=== PATIENT | female | born 1960 | race Caucasian/White ===

== ENCOUNTER 2019-01-12 10:36 | Inpatient (IN) | payer MEDICAID ==
[~2019-01-12] VITALS: Ht 170.2 cm; Wt 72.7 kg
[~2019-01-12 10:36] MED LIST: FOLI1TAB16 PO; IBUP-24 PO; THI100T PO
[2019-01-12] MEDS ORDERED: LIDOcaine 1% w/epiNEPHrine 1:200,000 30ml vial IM ONE ×2 (10:50→14:35)
[2019-01-12] MEDS ORDERED: sulfamethoxazole/trimethoprim DS (800/160mg) tablet PO ONE (10:50)
[2019-01-12] MEDS ORDERED: HYDROcodone/acetaminophen 10/325mg tab PO ONE (10:50)
[2019-01-12 11:30] LABS: BASOPHILS # (AUTO) 0.1 X10'3 (0-0.2); BASOPHILS % (AUTO) 0.3 % (0-1); EOSINOPHILS # (AUTO) 0.2 X10'3 (0-0.9); HEMATOCRIT 40.3 % (35.0-45.0); HEMOGLOBIN 13.4 g/dl (12.0-16.0); LYMPHOCYTES # (AUTO) 2.2 X10'3 (1.1-4.8); LYMPHOCYTES % (AUTO) 11.3 % (21-51); MEAN CORPUSCULAR HEMOGLOBIN 28.1 PG (27.0-31.0); MEAN CORPUSCULAR HGB CONC 33.2 g/dL (33.0-36.5); MEAN CORPUSCULAR VOLUME 84.7 FL (78-98); MEAN PLATELET VOLUME 7.9 FL (7.4-10.4); MONOCYTES # (AUTO) 1.4 X10'3 (0-0.9); MONOCYTES % (AUTO) 7.1 % (2-12); NEUTROPHILS # (AUTO) 15.9 X10'3 (1.8-7.7); NEUTROPHILS % (AUTO) 80.3 % (42-75); PLATELET COUNT 454 X10'3 (140-440); RED BLOOD COUNT 4.76 X10'6 (4.20-5.60); WHITE BLOOD COUNT 19.7 X10'3 (4.5-11.0)
[2019-01-12 11:40] LABS: ALANINE AMINOTRANSFERASE 21 U/L (12-78); ALBUMIN 2.9 G/DL (3.4-5.0); ALBUMIN/GLOBULIN RATIO 0.7 (1.1-1.5); ALKALINE PHOSPHATASE 94 IU/L (46-116); ANION GAP 12 (8-16); ASPARTATE AMINO TRANSFERASE 13 U/L (10-37); BILIRUBIN,TOTAL 0.3 MG/DL (0.1-1.0); BLOOD UREA NITROGEN 11 MG/DL (7-18); BUN/CREATININE RATIO 13.1 (6.6-38.0); CHLORIDE 103 MMOL/L (99-107); CREATININE 0.84 MG/DL (0.40-0.90); GLUCOSE 119 MG/DL (70-104); SODIUM 138 MMOL/L (135-145); TOTAL CARBON DIOXIDE 22.7 MMOL/L (24-32); TOTAL PROTEIN 7.1 G/DL (6.4-8.2); eGFR 70 ML/MIN
[2019-01-12 11:58] LABS: TOTAL CELLS COUNTED 100
[2019-01-12 12:02] LABS: PLATELET ESTIMATE INCREASED
[2019-01-12] MEDS ORDERED: ondansetron/PF 4mg/2ml inj IV ONE (12:05)
[2019-01-12] MEDS ORDERED: morphine 4 MG/ML inj SYRINge IV PRN ×3 (12:05→12:25)
[2019-01-12] MEDS ORDERED: ondansetron/PF 4mg/2ml inj IV PRN (12:25)
[2019-01-12] MEDS: K and/or MAG REPLACEMENT MC SCH (12:25)
[2019-01-12] MEDS ORDERED: acetaminophen 325mg tablet PO PRN (12:25)
[2019-01-12] MEDS ORDERED: HYDROcodone/acetaminophen 5mg/325mg tablet PO PRN (12:25)
[2019-01-12] MEDS ORDERED: mag hydrox/Alum hydrox/simeth 30ml oral suspension PO PRN (12:25)
[2019-01-12] MEDS ORDERED: potassium Cl 40MEQ/NS 500ml 500 ML IV PRN ×2 (12:25)
[2019-01-12] MEDS ORDERED: magnesium Cl slow-release 64mg tablet PO PRN (12:25)
[2019-01-12] MEDS ORDERED: dextrose 50%-water 50ml dispensing syringe IV PRN (12:25)
[2019-01-12] MEDS ORDERED: magnesium 4gm in 100ml NS 100 ML IV PRN (12:25)
[2019-01-12] MEDS ORDERED: potassium Cl 20 mEq SR tablet PO PRN (12:25)
[2019-01-12] MEDS ORDERED: LORazepam 2 mg/ml vial IV PRN (12:25)
[2019-01-12] MEDS ORDERED: magnesium hydroxide 30ml (MOM) UD suspension PO PRN (12:25)
[2019-01-12] MEDS ORDERED: magnesium 2GM in 50ml NS 50 ML IV PRN (12:25)
[2019-01-12] MEDS ORDERED: bisacodyl 10mg suppository rectal RC PRN (12:25)
[2019-01-12] MEDS ORDERED: iohexol 300mg/ml 100ml inj. ONE (12:38)
[2019-01-12] MEDS ORDERED: NO HOME MEDS (12:55)
--- NOTE | 2019-01-12 13:33 | NUR ---
HAVING HARD TIME GETTING AN IV. US IV BEING ATTEMPTED NOW
[2019-01-12] MEDS: potassium Cl 20mEq in NS 1,000 ML IV SCH (14:01)
[2019-01-12] MEDS: levoFLOXACIN-Levaquin 500mg/D5 100 ML IV SCH (14:01)
[2019-01-12] MEDS: nicotine 21mg patch - 24 hr TD SCH (14:21)
[2019-01-12] MEDS: potassium Cl 20 mEq SR tablet PO PRN ×2 (14:35→19:18)
[2019-01-12] MEDS ORDERED: morphine 4 MG/ML inj SYRINge IM ONE (14:45)
[2019-01-12] MEDS ORDERED: pneumococcal 23-VAL P-sac vacc 25 mcg/0.5ml vial IMVAC ONE (15:00)
[2019-01-12] MEDS ORDERED: normal saline 1000ml 1,000 ML IV ONE (15:15)
--- NOTE | 2019-01-12 15:16 | NUR ---
BOLUS GIVEN LATE FOR HIGH LACTIC CAUSE IV ACCESS WAS A PROBLEM. 1 NS GIVEN
--- NOTE | 2019-01-12 15:45 | NUR ---
vanco not given yet we had a hard time getting an IV, levo atb hanging now
--- NOTE | 2019-01-12 15:52 | NUR ---
Patient arrived to the unit. Up to the restroom. Walks well independently. Preparing patient to OR
[2019-01-12 16:09] VITALS: BP 101/75
[2019-01-12] MEDS: vancomycin/NS 1 GM ADD-VANTAGE 250 ML IV SCH (16:33)
--- NOTE | 2019-01-12 18:20 | NUR ---
Problems reprioritized. Patient report given, questions answered & plan of care reviewed with Taylor TENA. Student documentation: I have reviewed and agree with all interventions, assessments performed and documented by Amrita TENA. Student Medication Administration: For this medication-pass time frame, all medication were reviewed, dispensed, administered and documented per hospital policy by Amrita TENA.
--- NOTE | 2019-01-12 18:30 | NUR ---
Received report from MALLIKA Mon. Patient is awake and alert on room air, in no apparent distress. Call light and items of frequent use within reach. Will continue to monitor.
[2019-01-12] MEDS: docusate sod 100mg capsule PO SCH (19:19)
[2019-01-12] MEDS: HYDROcodone/acetaminophen 10/325mg tab PO PRN (19:19)
[2019-01-12 20:00] VITALS: BP 101/70
[2019-01-12 23:36] LABS: URINE AMPHETAMINE SCREEN POSITIVE (Neg); URINE BARBITUATE SCREEN NEGATIVE (Neg); URINE BENZODIAZEPINES SCREEN NEGATIVE (Neg); URINE CANNABINOID SCREEN POSITIVE (Neg); URINE COCAINE SCREEN NEGATIVE (Neg); URINE METHADONE SCREEN NEGATIVE (Neg); URINE OPIATE SCREEN POSITIVE (Neg); URINE PHENCYCLIDINE SCREEN NEGATIVE (Neg)
[2019-01-13] VITALS (8 sets, daily range): BP systolic 83–107; BP diastolic 49–73
[2019-01-13] MEDS: potassium Cl 20 mEq SR tablet PO PRN (00:20)
[2019-01-13] MEDS: vancomycin/NS 1 GM ADD-VANTAGE 250 ML IV SCH ×2 (00:21→12:21)
[2019-01-13] MEDS: potassium Cl 20mEq in NS 1,000 ML IV SCH (03:12)
[2019-01-13 05:33] LABS: BASOPHILS # (AUTO) 0.1 X10'3 (0-0.2); BASOPHILS % (AUTO) 0.4 % (0-1); EOSINOPHILS # (AUTO) 0.3 X10'3 (0-0.9); EOSINOPHILS % (AUTO) 2.6 % (0-6); HEMATOCRIT 36.7 % (35.0-45.0); HEMOGLOBIN 12.1 g/dl (12.0-16.0); LYMPHOCYTES # (AUTO) 2.3 X10'3 (1.1-4.8); LYMPHOCYTES % (AUTO) 18.1 % (21-51); MEAN CORPUSCULAR HEMOGLOBIN 28.1 PG (27.0-31.0); MEAN CORPUSCULAR HGB CONC 32.9 g/dL (33.0-36.5); MEAN CORPUSCULAR VOLUME 85.3 FL (78-98); MEAN PLATELET VOLUME 8.2 FL (7.4-10.4); MONOCYTES # (AUTO) 1.1 X10'3 (0-0.9); MONOCYTES % (AUTO) 8.6 % (2-12); NEUTROPHILS # (AUTO) 8.9 X10'3 (1.8-7.7); NEUTROPHILS % (AUTO) 70.3 % (42-75); PLATELET COUNT 395 X10'3 (140-440); RED CELL DISTRIBUTION WIDTH 13.1 % (11.5-14.5); WHITE BLOOD COUNT 12.6 X10'3 (4.5-11.0)
[2019-01-13 05:51] LABS: ALANINE AMINOTRANSFERASE 14 U/L (12-78); ALBUMIN 2.2 G/DL (3.4-5.0); ALBUMIN/GLOBULIN RATIO 0.6 (1.1-1.5); ALKALINE PHOSPHATASE 95 IU/L (46-116); ANION GAP 8 (8-16); ASPARTATE AMINO TRANSFERASE 11 U/L (10-37); BILIRUBIN,TOTAL 0.2 MG/DL (0.1-1.0); BLOOD UREA NITROGEN 9 MG/DL (7-18); BUN/CREATININE RATIO 11.5 (6.6-38.0); CALCIUM 7.9 MG/DL (8.5-10.1); CHLORIDE 106 MMOL/L (99-107); CREATININE 0.78 MG/DL (0.40-0.90); GLUCOSE 103 MG/DL (70-104); MAGNESIUM 1.5 MG/DL (1.5-2.4); POTASSIUM 4.7 MMOL/L (3.5-5.1); SODIUM 137 MMOL/L (135-145); TOTAL PROTEIN 5.8 G/DL (6.4-8.2); eGFR 76 ML/MIN
--- NOTE | 2019-01-13 06:19 | NUR ---
Problems reprioritized. Patient report given, questions answered & plan of care reviewed with MALLIKA Mon.
--- NOTE | 2019-01-13 06:40 | NUR ---
Patient in room [facility]. I have received report from Taylor TENA and had the opportunity to ask questions and assume patient care.
[2019-01-13] MEDS ORDERED: normal saline 250ml IV soln 250 ML IV ONE (07:15)
[2019-01-13] MEDS: nicotine 21mg patch - 24 hr TD SCH (07:37)
[2019-01-13] MEDS: thiamine 100mg tablet PO SCH (07:37)
[2019-01-13] MEDS: folic acid 1mg tablet PO SCH (07:37)
[2019-01-13] MEDS: multivitamins, therapeutics tablet PO SCH (07:37)
[2019-01-13] MEDS: docusate sod 100mg capsule PO SCH ×2 (07:38→20:53)
[2019-01-13] MEDS: enoxaparin 40mg/0.4ml syringe SUBCUT SCH (07:39)
[2019-01-13] MEDS: levoFLOXACIN-Levaquin 500mg/D5 100 ML IV SCH (07:39)
[2019-01-13] MEDS: HYDROcodone/acetaminophen 10/325mg tab PO PRN ×2 (07:42→17:58)
[2019-01-13] MEDS ORDERED: folic acid inj. 2 MG, thiamine inj. 100 MG, MVI, adult No.4 with vit. K 10 ML in dextro... IV SCH ×4 (08:00)
[2019-01-13] MEDS: K and/or MAG REPLACEMENT MC SCH (08:00)
[2019-01-13] MEDS: normal saline 1000ml 1,000 ML IV SCH ×2 (11:37→19:17)
[2019-01-13] MEDS: LORazepam 1 MG tablet PO PRN ×2 (12:22→20:53)
--- NOTE | 2019-01-13 14:07 | NUR ---
Student documentation: I have reviewed and agree with all interventions, assessments performed and documented by Amrita MATHEWS from [facility]. Student Medication Administration: For this medication-pass time frame, all medication were reviewed, dispensed, administered and documented per hospital policy by Amrita MATHEWS from [facility].
--- NOTE | 2019-01-13 17:46 | NUR ---
PATIENTS WOUND DRESSING WAS CHANGED, THE AREA IS VERY SENSITIVE TO TOUCH, PATIENT TOLERATED IT WELL. THERE WAS A MODERATE AMOUNT OF PURULENT SEROSANGUINEOUS DRAINAGE. PATIENT NOW RESTING.
--- NOTE | 2019-01-13 18:20 | NUR ---
Patient in room [facility]. I have received report from Yaa Addison and had the opportunity to ask questions and assume patient care.
--- NOTE | 2019-01-13 18:21 | NUR ---
Problems reprioritized. Patient report given, questions answered & plan of care reviewed with Kiya TENA.
[2019-01-14] VITALS (13 sets, daily range): BP systolic 88–135; BP diastolic 50–90
[2019-01-14] MEDS ORDERED: VANCOMYCIN LEVEL IV ONE (00:30)
[2019-01-14] MEDS: normal saline 1000ml 1,000 ML IV SCH ×2 (00:55→15:54)
--- NOTE | 2019-01-14 01:00 | NUR ---
Dressing change to right buttock d/t excessive drainage oozing out. drainage gallardo/pin/purulent in color. Expressed around 30cc. Patient tolerated well.
[2019-01-14] MEDS: HYDROcodone/acetaminophen 10/325mg tab PO PRN ×3 (01:35→13:32)
[2019-01-14] MEDS: vancomycin/NS 1 GM ADD-VANTAGE 250 ML IV SCH (01:37)
[2019-01-14 05:20] LABS: BASOPHILS % (AUTO) 0.5 % (0-1); EOSINOPHILS # (AUTO) 0.2 X10'3 (0-0.9); EOSINOPHILS % (AUTO) 2.7 % (0-6); HEMOGLOBIN 12.1 g/dl (12.0-16.0); LYMPHOCYTES # (AUTO) 2.7 X10'3 (1.1-4.8); LYMPHOCYTES % (AUTO) 32.4 % (21-51); MEAN CORPUSCULAR HEMOGLOBIN 28.2 PG (27.0-31.0); MEAN CORPUSCULAR HGB CONC 32.8 g/dL (33.0-36.5); MEAN PLATELET VOLUME 8.1 FL (7.4-10.4); MONOCYTES # (AUTO) 0.4 X10'3 (0-0.9); MONOCYTES % (AUTO) 5.4 % (2-12); NEUTROPHILS # (AUTO) 4.9 X10'3 (1.8-7.7); PLATELET COUNT 386 X10'3 (140-440); RED BLOOD COUNT 4.31 X10'6 (4.20-5.60); RED CELL DISTRIBUTION WIDTH 12.7 % (11.5-14.5); WHITE BLOOD COUNT 8.3 X10'3 (4.5-11.0)
[2019-01-14 05:26] LABS: ALANINE AMINOTRANSFERASE 14 U/L (12-78); ALBUMIN/GLOBULIN RATIO 0.5 (1.1-1.5); ALKALINE PHOSPHATASE 74 IU/L (46-116); ANION GAP 9 (8-16); ASPARTATE AMINO TRANSFERASE 10 U/L (10-37); BILIRUBIN,TOTAL 0.1 MG/DL (0.1-1.0); BLOOD UREA NITROGEN 8 MG/DL (7-18); BUN/CREATININE RATIO 11.8 (6.6-38.0); CALCIUM 8.2 MG/DL (8.5-10.1); CHLORIDE 105 MMOL/L (99-107); CREATININE 0.68 MG/DL (0.40-0.90); GLUCOSE 103 MG/DL (70-104); MAGNESIUM 1.5 MG/DL (1.5-2.4); POTASSIUM 3.7 MMOL/L (3.5-5.1); SODIUM 138 MMOL/L (135-145); TOTAL PROTEIN 5.7 G/DL (6.4-8.2); eGFR 89 ML/MIN
--- NOTE | 2019-01-14 06:15 | NUR ---
Problems reprioritized. Patient report given, questions answered & plan of care reviewed with Samantha TENA.Patient on right side, sleeping soundly with eyes open and respirations steady..
--- NOTE | 2019-01-14 07:05 | NUR ---
Patient in room [facility]. I have received report from Kiya TENA and had the opportunity to ask questions and assume patient care.
[2019-01-14] MEDS: K and/or MAG REPLACEMENT MC SCH (07:28)
[2019-01-14] MEDS: docusate sod 100mg capsule PO SCH ×2 (07:38→20:02)
[2019-01-14] MEDS: levoFLOXACIN-Levaquin 500mg/D5 100 ML IV SCH (07:38)
[2019-01-14] MEDS: multivitamins, therapeutics tablet PO SCH (07:38)
[2019-01-14] MEDS: thiamine 100mg tablet PO SCH (07:38)
[2019-01-14] MEDS: nicotine 21mg patch - 24 hr TD SCH (07:38)
[2019-01-14] MEDS: folic acid 1mg tablet PO SCH (07:38)
[2019-01-14] MEDS: enoxaparin 40mg/0.4ml syringe SUBCUT SCH (07:39)
[2019-01-14] MEDS ORDERED: vancomycin/NS 1 GM ADD-VANTAGE 250 ML IV SCH (09:00)
--- NOTE | 2019-01-14 15:09 | NUR ---
Dr. Rodriguez phoned w/ orders that pt be NPO p MN for surgery 01/15. Addendum: 01/14/19 at 1516 by Lynda Rosario RN MARTÍN Belcher RN, stated pt will go to OR tentatively at noon 01/15. MALLIKA Prabhakar notified.
[2019-01-14] MEDS: LORazepam 1 MG tablet PO PRN ×2 (15:51→20:02)
[2019-01-14] MEDS: linezolid 600mg/300ml PREMIX 300 ML IV SCH (21:48)
[2019-01-15] VITALS (19 sets, daily range): BP systolic 92–146; BP diastolic 63–94
[2019-01-15] MEDS ORDERED: VANCOMYCIN LEVEL IV NR (00:30)
[2019-01-15] MEDS: normal saline 1000ml 1,000 ML IV SCH ×2 (01:17→11:07)
[2019-01-15 06:02] LABS: ALANINE AMINOTRANSFERASE 18 U/L (12-78); ALBUMIN 2.1 G/DL (3.4-5.0); ALBUMIN/GLOBULIN RATIO 0.5 (1.1-1.5); ALKALINE PHOSPHATASE 77 IU/L (46-116); ANION GAP 9 (8-16); BILIRUBIN,TOTAL 0.1 MG/DL (0.1-1.0); BLOOD UREA NITROGEN 7 MG/DL (7-18); BUN/CREATININE RATIO 11.1 (6.6-38.0); CALCIUM 8.3 MG/DL (8.5-10.1); CHLORIDE 105 MMOL/L (99-107); CREATININE 0.63 MG/DL (0.40-0.90); GLUCOSE 99 MG/DL (70-104); MAGNESIUM 1.5 MG/DL (1.5-2.4); SODIUM 137 MMOL/L (135-145); TOTAL CARBON DIOXIDE 23.2 MMOL/L (24-32); TOTAL PROTEIN 6.2 G/DL (6.4-8.2); eGFR > 90 ML/MIN
[2019-01-15 06:04] LABS: ASPARTATE AMINO TRANSFERASE 21 U/L (10-37); POTASSIUM 4.1 MMOL/L (3.5-5.1)
--- NOTE | 2019-01-15 07:12 | NUR ---
Patient in room [facility]. I have received report from MALLIKA RIOS and had the opportunity to ask questions and assume patient care.
[2019-01-15] MEDS: K and/or MAG REPLACEMENT MC SCH (08:00)
[2019-01-15] MEDS: thiamine 100mg tablet PO SCH (08:00)
[2019-01-15] MEDS: enoxaparin 40mg/0.4ml syringe SUBCUT SCH (08:00)
[2019-01-15] MEDS: folic acid 1mg tablet PO SCH (08:00)
[2019-01-15] MEDS: docusate sod 100mg capsule PO SCH ×2 (08:00→20:06)
[2019-01-15] MEDS: linezolid 600mg/300ml PREMIX 300 ML IV SCH (08:00)
[2019-01-15] MEDS: multivitamins, therapeutics tablet PO SCH (08:00)
[2019-01-15] MEDS: nicotine 21mg patch - 24 hr TD SCH (08:17)
[2019-01-15] MEDS: LORazepam 1 MG tablet PO PRN (08:17)
[2019-01-15] MEDS: HYDROcodone/acetaminophen 10/325mg tab PO PRN ×3 (08:17→20:12)
[2019-01-15 10:34] LABS: BASOPHILS % (AUTO) 0.6 % (0-1); EOSINOPHILS # (AUTO) 0.1 X10'3 (0-0.9); HEMATOCRIT 36.2 % (35.0-45.0); HEMOGLOBIN 12.3 g/dl (12.0-16.0); LYMPHOCYTES # (AUTO) 1.6 X10'3 (1.1-4.8); LYMPHOCYTES % (AUTO) 25.1 % (21-51); MEAN CORPUSCULAR HEMOGLOBIN 28.3 PG (27.0-31.0); MEAN CORPUSCULAR HGB CONC 33.9 g/dL (33.0-36.5); MEAN CORPUSCULAR VOLUME 83.6 FL (78-98); MONOCYTES # (AUTO) 0.4 X10'3 (0-0.9); MONOCYTES % (AUTO) 5.4 % (2-12); NEUTROPHILS # (AUTO) 4.4 X10'3 (1.8-7.7); NEUTROPHILS % (AUTO) 66.9 % (42-75); PLATELET COUNT 483 X10'3 (140-440); RED BLOOD COUNT 4.33 X10'6 (4.20-5.60); RED CELL DISTRIBUTION WIDTH 12.7 % (11.5-14.5); WHITE BLOOD COUNT 6.5 X10'3 (4.5-11.0)
[2019-01-15 11:10] LABS: PARTIAL THROMBOPLASTIN TIME 28 SECONDS (22-32); PROTHROMBIN TIME 9.8 SECONDS (9.0-12.0)
--- NOTE | 2019-01-15 11:18 | NUR ---
Report given to MALLIKA Plascencia in recovery.
[2019-01-15] MEDS ORDERED: ringers solution, lacted 1,000 ML IV SCH (12:08)
[2019-01-15] MEDS ORDERED: ondansetron/PF 4mg/2ml inj IV PRN (12:10)
[2019-01-15] MEDS ORDERED: proCHLORperazine 10 MG/2 ml inj IV PRN (12:10)
[2019-01-15] MEDS ORDERED: morphine 4 MG/ML inj SYRINge IV PRN (12:10)
[2019-01-15] MEDS ORDERED: meperidine/PF 25mg/ml syringe IV PRN ×2 (12:10)
--- NOTE | 2019-01-15 12:10 | NUR ---
Patient down to OR for procedure accompanied by x1 staff.
[2019-01-15] MEDS ORDERED: sevoflurane 250ml liquid IH ONE (12:37)
[2019-01-15] MEDS ORDERED: midazolam 2 mg/2 ml injection ONE (12:43)
[2019-01-15] MEDS ORDERED: fentaNYL/PF 50MCG/1 ML 2ML syringe ONE (12:43)
[2019-01-15] MEDS ORDERED: propofol inj 20 ML IV ONE (12:43)
--- NOTE | 2019-01-15 13:12 | NUR ---
Received from OR via SURGICAL BED, accompanied by Anesthesiologist ANNITA and report given by Anesthesiolgist. PATIENT WITH 4X4S, 1/2'IODOFORM, AND AN ABD DRESSING TO RIGHT LOW BACK AND BUTTOCK SITE. CDI CURRENTLY. 20G PIV IN LEFT AC RUNNING LR AT 100. MEDICATED FOR PAIN UPON ARRIVAL. VSS AT THIS TIME. Addendum: 01/15/19 at 1324 by Temo House RN, RN Amended: Links added.
[2019-01-15] MEDS: meperidine/PF 25mg/ml syringe IV PRN ×2 (13:19→13:41)
[2019-01-15] MEDS: morphine 4 MG/ML inj SYRINge IV PRN ×2 (13:50→14:18)
--- NOTE | 2019-01-15 14:12 | NUR ---
Report called to receiving nurse. Transferred via SURGICAL BED WITH NO Belongings . Special Issues communicated to receiving nurse HAKEEM TENA.S. WILLIAM DANIEL, MALLIKA PRESENT TO ACCEPT CARE. CALL LIGHT PRESENT. Addendum: 01/15/19 at 1422 by Temo House RN, RN Amended: Links added.
--- NOTE | 2019-01-15 14:19 | NUR ---
received patient back to room 347b via bed accompanied x2 staff. patient is drowsy but easily awakens and responds to verbal stimuli. patient c/o pain 05/20. hood rn from recovery states patient had been given pain med prior to transfer. patient's post op vitals initiated, vss. large dressing to right buttock with small amount of serous drainage. patient's bed is low and locked with call light within patient's reach.
--- NOTE | 2019-01-15 18:39 | NUR ---
Problems reprioritized. Patient report given, questions answered & plan of care reviewed with victor manuel rn and sean gracia rn.
[2019-01-15] MEDS: linezolid 600mg tablet PO SCH (20:06)
[2019-01-16] MEDS: HYDROcodone/acetaminophen 10/325mg tab PO PRN ×4 (04:47→19:21)
[2019-01-16 06:13] LABS: ALANINE AMINOTRANSFERASE 19 U/L (12-78); ALBUMIN 2.2 G/DL (3.4-5.0); ALBUMIN/GLOBULIN RATIO 0.6 (1.1-1.5); ALKALINE PHOSPHATASE 77 IU/L (46-116); ANION GAP 8 (8-16); ASPARTATE AMINO TRANSFERASE 20 U/L (10-37); BILIRUBIN,TOTAL 0.1 MG/DL (0.1-1.0); BLOOD UREA NITROGEN 10 MG/DL (7-18); CALCIUM 8.4 MG/DL (8.5-10.1); CHLORIDE 104 MMOL/L (99-107); CREATININE 0.77 MG/DL (0.40-0.90); GLUCOSE 92 MG/DL (70-104); MAGNESIUM 1.7 MG/DL (1.5-2.4); POTASSIUM 3.7 MMOL/L (3.5-5.1); SODIUM 138 MMOL/L (135-145); TOTAL CARBON DIOXIDE 26.4 MMOL/L (24-32); TOTAL PROTEIN 6.1 G/DL (6.4-8.2); eGFR 77 ML/MIN
--- NOTE | 2019-01-16 06:13 | NUR ---
Problems reprioritized. Patient report given, questions answered & plan of care reviewed with Iqra TENA. Addendum: 01/16/19 at 0614 by Tran De Los Santos RN Amended: Links added.
--- NOTE | 2019-01-16 06:47 | NUR ---
Patient in room [facility]. I have received report from MALLIKA Mayfield and had the opportunity to ask questions and assume patient care.
[2019-01-16 08:00] VITALS: BP 105/56
[2019-01-16] MEDS: K and/or MAG REPLACEMENT MC SCH (08:00)
[2019-01-16] MEDS: docusate sod 100mg capsule PO SCH ×2 (09:44→19:21)
[2019-01-16] MEDS: linezolid 600mg tablet PO SCH ×2 (09:45→19:21)
[2019-01-16] MEDS: folic acid 1mg tablet PO SCH (09:47)
[2019-01-16] MEDS: enoxaparin 40mg/0.4ml syringe SUBCUT SCH (09:47)
[2019-01-16] MEDS: multivitamins, therapeutics tablet PO SCH (09:48)
[2019-01-16] MEDS: thiamine 100mg tablet PO SCH (09:48)
[2019-01-16] MEDS: nicotine 21mg patch - 24 hr TD SCH (09:57)
[2019-01-16 11:00] VITALS: BP 105/62
[2019-01-16] MEDS ORDERED: LINE600T32 PO (11:45)
[2019-01-16] MEDS ORDERED: FOLI1TAB16 PO (11:45)
[2019-01-16] MEDS ORDERED: HYDR-3972 PO (11:45)
[2019-01-16] MEDS ORDERED: COL100C PO (11:45)
[2019-01-16] MEDS ORDERED: thiamine tablet PO (11:45)
[2019-01-16 18:00] VITALS: BP 105/66
--- NOTE | 2019-01-16 18:02 | NUR ---
Education: patient receiving linezolid and needs written low tyramine education handout with verbal review. Educated pt on foods low and high in tyramine and which foods to avoid, including beer. Patient has history of heavy EtOH. Pt has surgical wound to right gluteus s/p I&D to right buttocks. Verbally educated patient on importance of high protein for wound healing. Addendum: 01/16/19 at [address] Amended: Links added.
--- NOTE | 2019-01-16 18:36 | NUR ---
Problems reprioritized. Patient report given, questions answered & plan of care reviewed with SHIRLENE AND FESTUS rn'S.
--- NOTE | 2019-01-16 18:59 | NUR ---
Patient in room [facility]. I have received report from MALLIKA VALERO and had the opportunity to ask questions and assume patient care. Addendum: 01/16/19 at 1900 by Tonya Anaya RN Amended: Links added.
[2019-01-17] VITALS: BP 125/80
[2019-01-17] MEDS: HYDROcodone/acetaminophen 10/325mg tab PO PRN ×3 (02:55→12:09)
[2019-01-17 05:58] LABS: BASOPHILS # (AUTO) 0.1 X10'3 (0-0.2); BASOPHILS % (AUTO) 1.2 % (0-1); EOSINOPHILS # (AUTO) 0.2 X10'3 (0-0.9); HEMATOCRIT 40.4 % (35.0-45.0); HEMOGLOBIN 13.5 g/dl (12.0-16.0); LYMPHOCYTES # (AUTO) 1.6 X10'3 (1.1-4.8); LYMPHOCYTES % (AUTO) 25.9 % (21-51); MEAN CORPUSCULAR HEMOGLOBIN 28.4 PG (27.0-31.0); MEAN CORPUSCULAR HGB CONC 33.4 g/dL (33.0-36.5); MEAN PLATELET VOLUME 7.2 FL (7.4-10.4); MONOCYTES # (AUTO) 0.3 X10'3 (0-0.9); MONOCYTES % (AUTO) 5.4 % (2-12); NEUTROPHILS # (AUTO) 3.9 X10'3 (1.8-7.7); NEUTROPHILS % (AUTO) 63.5 % (42-75); PLATELET COUNT 468 X10'3 (140-440); RED BLOOD COUNT 4.76 X10'6 (4.20-5.60); RED CELL DISTRIBUTION WIDTH 12.9 % (11.5-14.5); WHITE BLOOD COUNT 6.1 X10'3 (4.5-11.0)
--- NOTE | 2019-01-17 06:15 | NUR ---
Patient in room [facility] 353. I have received report from Carlota Serra and Tran TENA and had the opportunity to ask questions and assume patient care. Patient in bed resting on her back
--- NOTE | 2019-01-17 06:21 | NUR ---
Problems reprioritized. Patient report given, questions answered & plan of care reviewed with MALLIKA VASQUEZ.
[2019-01-17 06:23] LABS: ALANINE AMINOTRANSFERASE 37 U/L (12-78); ALBUMIN 2.6 G/DL (3.4-5.0); ALBUMIN/GLOBULIN RATIO 0.6 (1.1-1.5); ALKALINE PHOSPHATASE 115 IU/L (46-116); ANION GAP 9 (8-16); ASPARTATE AMINO TRANSFERASE 33 U/L (10-37); BILIRUBIN,TOTAL 0.1 MG/DL (0.1-1.0); BLOOD UREA NITROGEN 8 MG/DL (7-18); BUN/CREATININE RATIO 10.5 (6.6-38.0); CHLORIDE 102 MMOL/L (99-107); CREATININE 0.76 MG/DL (0.40-0.90); GLUCOSE 101 MG/DL (70-104); MAGNESIUM 1.9 MG/DL (1.5-2.4); POTASSIUM 3.8 MMOL/L (3.5-5.1); SODIUM 138 MMOL/L (135-145); TOTAL CARBON DIOXIDE 26.8 MMOL/L (24-32); eGFR 78 ML/MIN
[2019-01-17 07:25] VITALS: BP 98/65
[2019-01-17] MEDS: K and/or MAG REPLACEMENT MC SCH (08:00)
[2019-01-17] MEDS: docusate sod 100mg capsule PO SCH (08:17)
[2019-01-17] MEDS: linezolid 600mg tablet PO SCH (08:17)
[2019-01-17] MEDS: thiamine 100mg tablet PO SCH (08:17)
[2019-01-17] MEDS: folic acid 1mg tablet PO SCH (08:17)
[2019-01-17] MEDS: multivitamins, therapeutics tablet PO SCH (08:18)
[2019-01-17] MEDS: nicotine 21mg patch - 24 hr TD SCH (08:18)
[2019-01-17] MEDS: enoxaparin 40mg/0.4ml syringe SUBCUT SCH (08:18)
[2019-01-17 11:20] VITALS: BP 104/73
--- NOTE | 2019-01-17 13:18 | NUR ---
Patient discharged home. Medications that were delivered by [facility] 01/16/19 where given and explained to patient. All belongings sent. IV and Tele removed. Wound care was complete before discharge. Patient was educated to go to her appointment at wound clinic on Saturday. She was given the phone number for home health who will be contacting her to care for her out patient care. Patient was wheeled out by staff. Stable and alert at discharge.
== END 2019-01-17 13:16 | disposition home health service (06) | DRG 720 ==
LOC: ER 10:37 → ED HOLD 12:24 → SUR 3N 15:46
PROVIDERS: ADMIT Internal Medicine; ATTEND Internal Medicine
PROC: 0H98XZZ Drainage of Buttock Skin, External Approach (ICD-10-PCS; 2019-01-12)
PROC: BW2G1ZZ Computerized Tomography (CT Scan) of Pelvic Region using Low Osmolar Contrast (ICD-10-PCS; 2019-01-12)
PROC: 0W9L0ZZ Drainage of Lower Back, Open Approach (ICD-10-PCS; principal; 2019-01-15 12:39)
DX: A41.9 Sepsis, unspecified organism (principal); E87.6 Hypokalemia; L02.31 Cutaneous abscess of buttock; F10.20 Alcohol dependence, uncomplicated; L03.317 Cellulitis of buttock; F11.10 Opioid abuse, uncomplicated; B95.62 Methicillin resistant Staphylococcus aureus infection as the cause of diseases classified elsewhere; F17.210 Nicotine dependence, cigarettes, uncomplicated; F12.90 Cannabis use, unspecified, uncomplicated; Z56.0 Unemployment, unspecified; Z98.891 History of uterine scar from previous surgery; Z71.6 Tobacco abuse counseling; Z71.41 Alcohol abuse counseling and surveillance of alcoholic; Z71.51 Drug abuse counseling and surveillance of drug abuser
CPT/HCPCS: 10061; 36415; 72193; 80053; 80202; 80305; 82948; 83605; 83735; 85025; 85610; 85730; 87040; 87070; 87077; 87186; 90732; 93005; 99285; A6253; A6266; A6449; A7000; G0378; J1650; J1956; J2020; J2060; J2175; J2250; J2270; J2405; J2704; J3010; J3370; J3411; J3490; J7030; J7060; J7120; Q9967

== ENCOUNTER 2019-01-19 09:40 | Day surgery (SDC) | payer MEDICAID ==
[~2019-01-19 09:40] MED LIST changes: +COL100C PO; +HYDR-3972 PO; -IBUP-24 PO; +LINE600T32 PO; -THI100T PO; +thiamine tablet PO
[2019-01-19] MEDS ORDERED: LIDOcaine/PRILOcaine 5gm cream TP ONE (10:14)
--- NOTE | 2019-01-19 16:18 | NUR ---
0930 New patient admitted to outpatient wound care. Patient ambulated safely into [facility]. Dressing removed, wound cleansed and emla applied per order. Patient assessed for conditions, medications and medical history. 1040 at bedside accompanied by RN. Wounds assessed, time out performed and debridement done today as detailed in the physician progress/procedure note. Plan of care discussed with patient. Dressings placed per MD orders. Patient instructed by 2 nurses not to leave until initial assessment was done. Pt left anyway. Initial review of systems was not reviewed with patient. Part of initial assessment of reason for wound care was assessed by RN and Dr Bragg. Patient instructed on the signs and symptoms of infection and to call the Wound Center if any occur or to go to the ED if we are closed: Increased pain in wound Increase in drainage from the wound Redness in the skin surrounding the wound Bleeding from the wound Temperature of 101 or greater Patient instructed that the weight of their body puts a large amount of pressure on their wounds. This pressure keeps the new tissue from growing and inhibits new blood vessels from forming. Explained that, if they continue to bear weight on a body part that has a wound, the time it takes to heal the wound increases, the wound may get worse or the wound may not heal at all. Patient verbalized understanding of all discharge instructions and plan of care. Patient ambulated independently out to [facility] and is in stable condition with no sign or symptom of distress at time of discharge.
== END 2019-01-19 10:52 | disposition home or self-care (01) ==
LOC: WOUND CARE 09:40
PROVIDERS: ATTEND Surgery
DX: S31.819D Unspecified open wound of right buttock, subsequent encounter (principal); F17.210 Nicotine dependence, cigarettes, uncomplicated; X58.XXXD Exposure to other specified factors, subsequent encounter
CPT/HCPCS: 97597; A6266

== ENCOUNTER 2019-01-22 11:44 | Day surgery (SDC) | payer MEDICAID ==
--- NOTE | 2019-01-22 12:30 | NUR ---
Patient ambulated independently from [facility] and was admitted to outpatient wound care for physician visit with Anuj Bragg MD. Dressing removed, wound cleansed. Patient assessed for changes in conditions, medications and medical history. 1155 - Dr. Bragg at bedside accompanied by RN. Wound assessed, time out performed by MD/RN. Wound debrided as detailed in the physician progress/procedure note. Plan of care discussed with patient. Dressings placed per MD orders. Patient instructed on the signs and symptoms of infection and to call the Wound Center if any occur or to go to the ED if we are closed: Increased pain in wound Increase in drainage from the wound Redness in the skin surrounding the wound Bleeding from the wound Temperature of 101 or greater Patient instructed that the weight of their body puts a large amount of pressure on their wounds. This pressure keeps the new tissue from growing and inhibits new blood vessels from forming. Explained that, if they continue to bear weight on a body part that has a wound, the time it takes to heal the wound increases, the wound may get worse or the wound may not heal at all. Patient verbalized understanding of all discharge instructions and plan of care and ambulated independently out to [facility] in stable condition with no sign or symptom of distress at time of discharge.
== END 2019-01-22 12:05 | disposition home or self-care (01) ==
LOC: WOUND CARE 11:44
PROVIDERS: ATTEND Surgery
DX: S31.819D Unspecified open wound of right buttock, subsequent encounter (principal); L98.492 Non-pressure chronic ulcer of skin of other sites with fat layer exposed; F17.210 Nicotine dependence, cigarettes, uncomplicated; F12.90 Cannabis use, unspecified, uncomplicated; F11.10 Opioid abuse, uncomplicated; Z71.41 Alcohol abuse counseling and surveillance of alcoholic; G62.9 Polyneuropathy, unspecified; M19.90 Unspecified osteoarthritis, unspecified site; X58.XXXD Exposure to other specified factors, subsequent encounter
CPT/HCPCS: 97597; A6266; 17250; A6212

== ENCOUNTER 2019-01-30 09:25 | Outpatient (CLI) | payer MEDICAID ==
--- NOTE | 2019-01-30 10:00 | NUR ---
Patient ambulated independently from [facility] and was admitted to outpatient wound care for physician visit with Anuj Bragg MD. Dressing removed, wound cleansed. Patient assessed for changes in conditions, medications and medical history. 0946 -Dr. Bragg at bedside accompanied by RN. Wound assessed by MD, orders written. Plan of care discussed with patient. Dressings placed per MD orders. Patient instructed on the signs and symptoms of infection and to call the Wound Center if any occur or to go to the ED if we are closed: Increased pain in wound Increase in drainage from the wound Redness in the skin surrounding the wound Bleeding from the wound Temperature of 101 or greater Patient instructed that the weight of their body puts a large amount of pressure on their wounds. This pressure keeps the new tissue from growing and inhibits new blood vessels from forming. Explained that, if they continue to bear weight on a body part that has a wound, the time it takes to heal the wound increases, the wound may get worse or the wound may not heal at all. Patient verbalized understanding of all discharge instructions and plan of care and ambulated independently out to [facility] in stable condition with no sign or symptom of distress at time of discharge.
== END 2019-01-30 09:57 | disposition home or self-care (01) ==
LOC: WOUND CARE 09:25 → EDSTATUS 09:30 → WOUND CARE 09:57
PROVIDERS: ATTEND Surgery
DX: S31.819D Unspecified open wound of right buttock, subsequent encounter (principal); G62.9 Polyneuropathy, unspecified; M19.90 Unspecified osteoarthritis, unspecified site; F17.210 Nicotine dependence, cigarettes, uncomplicated; F12.90 Cannabis use, unspecified, uncomplicated; F11.10 Opioid abuse, uncomplicated; F10.20 Alcohol dependence, uncomplicated; Z71.6 Tobacco abuse counseling; X58.XXXD Exposure to other specified factors, subsequent encounter
CPT/HCPCS: A6266; G0463; A6212

== ENCOUNTER 2019-02-03 09:22 | Outpatient (CLI) | payer MEDICAID ==
--- NOTE | 2019-02-03 13:34 | NUR ---
Patient ambulated independently from [facility] and was admitted to outpatient wound care clinic for nursing visit. Dressing removed and wound cleansed. Patient assessed for changes in conditions, medications and medical history. Dressings applied per physician orders. Patient instructed on the signs and symptoms of infection and to call the Wound Center if any occur or to go to the ED if we are closed: Increased pain in wound Increase in drainage from the wound Redness in the skin surrounding the wound Bleeding from the wound Temperature of 101 or greater Patient instructed that the weight of their body puts a large amount of pressure on their wounds. This pressure keeps the new tissue from growing and inhibits new blood vessels from forming. Explained that, if they continue to bear weight on a body part that has a wound, the time it takes to heal the wound increases, the wound may get worse or the wound may not heal at all. Patient verbalized understanding of all discharge instructions and plan of care and ambulated independently out to [facility] in stable condition with no sign or symptom of distress at time of discharge. Addendum: 02/03/19 at 1337 by Clarisa Weaver RN Amended: Links added.
== END 2019-02-03 09:53 | disposition home or self-care (01) ==
LOC: WOUND CARE 09:22 → EDSTATUS 09:30 → WOUND CARE 09:53
PROVIDERS: ATTEND Surgery
DX: S31.819D Unspecified open wound of right buttock, subsequent encounter (principal); G62.9 Polyneuropathy, unspecified; M19.90 Unspecified osteoarthritis, unspecified site; F17.210 Nicotine dependence, cigarettes, uncomplicated; F12.90 Cannabis use, unspecified, uncomplicated; F11.10 Opioid abuse, uncomplicated; F10.20 Alcohol dependence, uncomplicated; Z71.6 Tobacco abuse counseling; X58.XXXD Exposure to other specified factors, subsequent encounter
CPT/HCPCS: A6266; G0463; A6212

== ENCOUNTER 2019-02-06 09:37 | Day surgery (SDC) | payer MEDICAID ==
--- NOTE | 2019-02-06 14:48 | NUR ---
Patient ambulated independently from [facility] and was admitted to outpatient wound care for physician visit with Anju Bragg MD. Dressing removed and wound cleansed. Patient assessed for changes in conditions, medications and medical history. Dr. Bragg at bedside accompanied by RN. Wound assessed, time out performed by MD/RN. Wound debrided as detailed in the physician progress/procedure note. Plan of care discussed with patient. Dressings placed per MD orders. Patient instructed on the signs and symptoms of infection and to call the Wound Center if any occur or to go to the ED if we are closed: Increased pain in wound Increase in drainage from the wound Redness in the skin surrounding the wound Bleeding from the wound Temperature of 101 or greater Patient instructed that the weight of their body puts a large amount of pressure on their wounds. This pressure keeps the new tissue from growing and inhibits new blood vessels from forming. Explained that, if they continue to bear weight on a body part that has a wound, the time it takes to heal the wound increases, the wound may get worse or the wound may not heal at all. Patient verbalized understanding of all discharge instructions and plan of care and ambulated independently out to [facility] in stable condition with no sign or symptom of distress at time of discharge. Addendum: 02/06/19 at 1449 by Clarisa Weaver RN Amended: Links added.
== END 2019-02-06 10:40 | disposition home or self-care (01) ==
LOC: WOUND CARE 09:37
PROVIDERS: ATTEND Surgery
DX: L98.412 Non-pressure chronic ulcer of buttock with fat layer exposed (principal); G62.9 Polyneuropathy, unspecified; M19.90 Unspecified osteoarthritis, unspecified site; F17.210 Nicotine dependence, cigarettes, uncomplicated; F12.90 Cannabis use, unspecified, uncomplicated; F11.10 Opioid abuse, uncomplicated; F10.10 Alcohol abuse, uncomplicated; Z71.6 Tobacco abuse counseling
CPT/HCPCS: 97597; A6266; A6212

== ENCOUNTER 2019-02-10 09:30 | Outpatient (CLI) | payer MEDICAID ==
--- NOTE | 2019-02-10 12:04 | NUR ---
Patient ambulated independently from [facility] and was admitted to outpatient wound care for physician visit with Anuj Bragg MD. Dressing removed, wound cleansed and lidocaine applied per order. Patient assessed for changes in conditions, medications and medical history. Dr. Bragg at bedside accompanied by RN. Wound assessed and no debridement was done. Plan of care discussed with patient. Dressings placed per MD orders. Patient instructed on the signs and symptoms of infection and to call the Wound Center if any occur or to go to the ED if we are closed: Increased pain in wound Increase in drainage from the wound Redness in the skin surrounding the wound Bleeding from the wound Temperature of 101 or greater Patient instructed that the weight of their body puts a large amount of pressure on their wounds. This pressure keeps the new tissue from growing and inhibits new blood vessels from forming. Explained that, if they continue to bear weight on a body part that has a wound, the time it takes to heal the wound increases, the wound may get worse or the wound may not heal at all. Patient verbalized understanding of all discharge instructions and plan of care and ambulated independently out to [facility] in stable condition with no sign or symptom of distress at time of discharge. Addendum: 02/10/19 at 1205 by Clarisa Weaver RN Amended: Links added.
== END 2019-02-10 10:54 | disposition home or self-care (01) ==
LOC: EDSTATUS 09:30 → WOUND CARE 09:30
PROVIDERS: ATTEND Surgery
DX: L98.412 Non-pressure chronic ulcer of buttock with fat layer exposed (principal); G62.9 Polyneuropathy, unspecified; M19.90 Unspecified osteoarthritis, unspecified site; F17.210 Nicotine dependence, cigarettes, uncomplicated; F12.90 Cannabis use, unspecified, uncomplicated; F11.10 Opioid abuse, uncomplicated; F10.10 Alcohol abuse, uncomplicated; Z71.6 Tobacco abuse counseling
CPT/HCPCS: A6021; A6206; A6213; G0463

== ENCOUNTER 2019-02-16 10:20 | Day surgery (SDC) | payer MEDICAID ==
--- NOTE | 2019-02-16 15:33 | NUR ---
Patient ambulated independently from [facility] and was admitted to outpatient wound care for physician visit with Anuj Bragg MD. Dressing removed, wound cleansed and lidocaine applied per order. Patient assessed for changes in conditions, medications and medical history. Dr. Bragg at bedside accompanied by RN. Wound assessed, time out performed by MD/RN. Wound debrided as detailed in the physician progress/procedure note. Plan of care discussed with patient. Dressings placed per MD orders. Patient instructed on the signs and symptoms of infection and to call the Wound Center if any occur or to go to the ED if we are closed: Increased pain in wound Increase in drainage from the wound Redness in the skin surrounding the wound Bleeding from the wound Temperature of 101 or greater Patient instructed that the weight of their body puts a large amount of pressure on their wounds. This pressure keeps the new tissue from growing and inhibits new blood vessels from forming. Explained that, if they continue to bear weight on a body part that has a wound, the time it takes to heal the wound increases, the wound may get worse or the wound may not heal at all. Patient verbalized understanding of all discharge instructions and plan of care and ambulated independently out to [facility] in stable condition with no sign or symptom of distress at time of discharge. Addendum: 02/16/19 at 1536 by Clarisa Weaver RN Amended: Links added.
== END 2019-02-16 12:17 | disposition home or self-care (01) ==
LOC: WOUND CARE 10:20
PROVIDERS: ATTEND Surgery
DX: L98.412 Non-pressure chronic ulcer of buttock with fat layer exposed (principal); G62.9 Polyneuropathy, unspecified; M19.90 Unspecified osteoarthritis, unspecified site; F17.210 Nicotine dependence, cigarettes, uncomplicated; F12.90 Cannabis use, unspecified, uncomplicated; F11.10 Opioid abuse, uncomplicated; F10.10 Alcohol abuse, uncomplicated; Z71.6 Tobacco abuse counseling
CPT/HCPCS: 97597; A6209; A6021